=== PATIENT | male | born 1995 | race African-American/Black ===

== ENCOUNTER 2018-08-13 00:25 | Emergency (ER) | payer OTHER, SELFPAY ==
[2018-08-13] MEDS ORDERED: CODEINE 30MG/APAP 300MG TAB ONE ×2 (01:09→01:22)
[2018-08-13] MEDS ORDERED: IBUPROFEN 400 MG TAB ONE (01:09)
--- NOTE | 2018-08-13 02:05 | EDPHYS ---
Physician Documentation [facility] Name: Philippe Cooper Age: 23 yrs Sex: Male : 1995 Arrival Date: 08/13/2018 Time: 00:28 Bed 5 Private MD: ED Physician Jace Alexis HPI: 08/13 00:50 This 23 yrs old Black Male presents to ER via Ambulatory with complaints of Right Ankle pm1 Injury. 00:50 The patient presents with pain, that is acute. The complaints affect the right ankle. pm1 Onset: The symptoms/episode began/occurred just prior to arrival. Context: The problem was sustained at work, resulted from jumping down from approximately 4 foot height, The mechanism of injury is unknown. The patient can partially bear weight on the affected extremity. the patient is able to ambulate, with mild difficulty. Associated signs and symptoms: Pertinent positives: swelling, of the right ankle, Pertinent negatives: calf tenderness, numbness, tingling. Modifying factors: The symptoms are alleviated by ice packs, the symptoms are aggravated by weight bearing. Severity of symptoms: in the emergency department the symptoms are unchanged. The patient has not experienced similar symptoms in the past. The patient has not recently seen a physician. Patient was at work and jumped down from rail car. Approximately 4 foot in height. Uncertain how he injured his ankle. Historical: - Allergies: 00:31 No Known Allergies; la1 - Home Meds: 00:31 None [Active]; la1 - PMHx: 00:31 None; la1 - PSHx: 00:31 None; la1 - Immunization history:: Adult Immunizations up to date. - Social history:: Smoking status: Patient/guardian denies using tobacco. - Ebola Screening: : No symptoms or risks identified at this time. ROS: 00:50 Constitutional: Negative for fever, chills, and weight loss, Eyes: Negative for injury, pm1 pain, redness, and discharge, ENT: Negative for injury, pain, and discharge, Neck: Negative for injury, pain, and swelling, Cardiovascular: Negative for chest pain, palpitations, and edema, Respiratory: Negative for shortness of breath, cough, wheezing, and pleuritic chest pain, Abdomen/GI: Negative for abdominal pain, nausea, vomiting, diarrhea, and constipation, Back: Negative for injury and pain. 00:50 Skin: Negative for injury, rash, and discoloration, Neuro: Negative for headache, weakness, numbness, tingling, and seizure. 00:50 MS/extremity: Positive for pain, swelling, of the right ankle, Negative for paresthesias, tingling. Exam: 00:50 Constitutional: This is a well developed, well nourished patient who is awake, alert, pm1 and in no acute distress. Head/Face: Normocephalic, atraumatic. Eyes: Pupils equal round and reactive to light, extra-ocular motions intact. Lids and lashes normal. Conjunctiva and sclera are non-icteric and not injected. Cornea within normal limits. Periorbital areas with no swelling, redness, or edema. ENT: Nares patent. No nasal discharge, no septal abnormalities noted. Tympanic membranes are normal and external auditory canals are clear. Oropharynx with no redness, swelling, or masses, exudates, or evidence of obstruction, uvula midline. Mucous membranes moist. Neck: Trachea midline, no thyromegaly or masses palpated, and no cervical lymphadenopathy. Supple, full range of motion without nuchal rigidity, or vertebral point tenderness. No Meningismus. Chest/axilla: Normal chest wall appearance and motion. Nontender with no deformity. No lesions are appreciated. Cardiovascular: Regular rate and rhythm with a normal S1 and S2. No gallops, murmurs, or rubs. Normal PMI, no JVD. No pulse deficits. Respiratory: Lungs have equal breath sounds bilaterally, clear to auscultation and percussion. No rales, rhonchi or wheezes noted. No increased work of breathing, no retractions or nasal flaring. Abdomen/GI: Soft, non-tender, with normal bowel sounds. No distension or tympany. No guarding or rebound. No evidence of tenderness throughout. Back: No spinal tenderness. No costovertebral tenderness. Full range of motion. Skin: Warm, dry with normal turgor. Normal color with no rashes, no lesions, and no evidence of cellulitis. 00:50 Musculoskeletal/extremity: Extremities: grossly normal except: noted in the right ankle lateral aspect: swelling, tenderness, There is no evidence of decreased ROM, deformity. 00:50 Neuro: Orientation: is normal, Motor: is normal, moves all fours, Sensation: is normal, no obvious gross deficits. Vital Signs: 00:31 BP 152 / 83; Pulse 99; Resp 16; Temp 97.5; Pulse Ox 98% on R/A; Weight 139.71 kg; la1 Height 5 ft. 11 in. (180.34 cm); Pain 9/10; 02:27 BP 140 / 70; Pulse 90; Resp 18; Pulse Ox 100% on R/A; Pain 2/10; mg2 00:31 Body Mass Index 42.96 (139.71 kg, 180.34 cm) la1 Procedures: 02:25 Splinting: Splint applied to right ankle using Air Cast, applied by nurse. Examined by pm1 me, post splint application: neurovascular intact, 2+ distal pulses palpable, brisk capillary refill noted, Patient tolerated well. MDM: 00:41 Patient medically screened. [facility] 02:03 Data reviewed: vital signs. Data interpreted: Pulse oximetry: on room air is 98 %. pm1 Interpretation: normal. Counseling: I had a detailed discussion with the patient and/or guardian regarding: the historical points, exam findings, and any diagnostic results supporting the discharge/admit diagnosis, radiology results, the need for outpatient follow up, to return to the emergency department if symptoms worsen or persist or if there are any questions or concerns that arise at home. 08/13 00:48 Order name: Ankle Right 3 View XRAY pm1 08/13 02:06 Order name: Crutches; Complete Time: 02:26 pm1 08/13 02:06 Order name: Aircast Ankle Splint; Complete Time: 02:26 pm1 Administered Medications: 01:21 Not Given (Patient Refused): Tylenol #3 (300 mg-30 mg) 2 tabs PO once mg2 01:22 Not Given (Patient Refused): Ibuprofen 800 mg PO once mg2 Disposition: 08/13/18 02:04 Discharged to Home. Impression: Sprain of unspecified ligament of right ankle. - Condition is Stable. - Discharge Instructions: Ankle Sprain, Crutch Use. - Medication Reconciliation Form, Thank You Letter, Antibiotic Education, Prescription Opioid Use form. - Follow up: Emergency Department; When: As needed; Reason: Worsening of condition. Follow up: Private Physician; When: 2 - 3 days; Reason: Recheck today's complaints, Continuance of care, Re-evaluation by your physician. - Problem is new. - Symptoms have improved. Addendum: 08/14/2018 11:20 Co-signature as Attending Physician, Jace Alexis MD I agree with the assessment and c herrera plan of care. Signatures: Dispatcher [employer] EDJace Echeverria MD MD cha Attema, Lee, RN RN la1 Tirso Gloria, PRODUCTION TEAM LEADER PRODUCTION TEAM LEADER pm1 Pankaj Sherman RN RN mg2 Corrections: (The following items were deleted from the chart) 08/13 02:28 02:04 08/13/2018 02:04 Discharged to Home. Impression: Sprain of unspecified ligament mg2 of right ankle. Condition is Stable. Forms are Medication Reconciliation Form, Thank You Letter, Antibiotic Education, Prescription Opioid Use. Follow up: Emergency Department; When: As needed; Reason: Worsening of condition. Follow up: Private Physician; When: 2 - 3 days; Reason: Recheck today's complaints, Continuance of care, Re-evaluation by your physician. Problem is new. Symptoms have improved. pm1
--- NOTE | 2018-08-13 02:05 | ER ---
Nurse's Notes [facility] Name: Philippe Cooper Age: 23 yrs Sex: Male : 1995 Arrival Date: 08/13/2018 Time: 00:28 Bed 5 Private MD: Diagnosis: Sprain of unspecified ligament of right ankle Presentation: 08/13 00:30 Presenting complaint: Patient states: I jumped off a rail cart at work and landed wrong la1 on my right ankle. Transition of care: patient was not received from another setting of care. Onset of symptoms was August 13, 2018. Risk Assessment: Do you want to hurt yourself or someone else? Patient reports no desire to harm self or others. Initial Sepsis Screen: Does the patient meet any 2 criteria? No. Patient's initial sepsis screen is negative. Does the patient have a suspected source of infection? No. Patient's initial sepsis screen is negative. Care prior to arrival: None. 00:30 Method Of Arrival: Ambulatory la1 00:30 Acuity: JULIEN 4 la1 Triage Assessment: 02:27 General: Appears in no apparent distress. comfortable, Behavior is calm, cooperative. mg2 Historical: - Allergies: 00:31 No Known Allergies; la1 - Home Meds: 00:31 None [Active]; la1 - PMHx: 00:31 None; la1 - PSHx: 00:31 None; la1 - Immunization history:: Adult Immunizations up to date. - Social history:: Smoking status: Patient/guardian denies using tobacco. - Ebola Screening: : No symptoms or risks identified at this time. Screenin:50 Abuse screen: Denies threats or abuse. Denies injuries from another. Nutritional mg2 screening: No deficits noted. Tuberculosis screening: No symptoms or risk factors identified. Fall Risk Fall in past 12 months (25 points). Ambulatory Aid- None/Bed Rest/Nurse Assist (0 pts). Gait- Weak (10 pts.). Assessment: 00:51 Pain: Complains of pain in right foot Pain currently is 6 out of 10 on a pain scale. mg2 Quality of pain is described as burning, Pain began suddenly. Neuro: Level of Consciousness is awake, alert, obeys commands, Oriented to person, place, time, situation. Cardiovascular: Capillary refill < 3 seconds. Respiratory: Airway is patent Respiratory effort is even, unlabored, Respiratory pattern is regular, symmetrical. Musculoskeletal: Circulation, motion, and sensation intact. Capillary refill < 3 seconds, Range of motion: limited in right ankle. Vital Signs: 00:31 BP 152 / 83; Pulse 99; Resp 16; Temp 97.5; Pulse Ox 98% on R/A; Weight 139.71 kg; la1 Height 5 ft. 11 in. (180.34 cm); Pain 9/10; 02:27 BP 140 / 70; Pulse 90; Resp 18; Pulse Ox 100% on R/A; Pain 2/10; mg2 00:31 Body Mass Index 42.96 (139.71 kg, 180.34 cm) la1 ED Course: 00:28 Patient arrived in ED. am2 00:31 Triage completed. la1 00:32 Arm band placed on left wrist. la1 00:34 Tirso Gloria NP is PHCP. pm1 00:34 Jace Alexis MD is Attending Physician. pm1 00:45 Pankaj Sherman RN is Primary Nurse. mg2 01:07 No provider procedures requiring assistance completed. Patient did not have IV access mg2 during this emergency room visit. 01:09 X-ray completed. Portable x-ray completed in exam room. Patient tolerated procedure kw well. 01:10 Ankle Right 3 View XRAY In Process Unspecified. EDMS 02:26 Patient has correct armband on for positive identification. mg2 02:26 Crutch training done. aircast applied to the right ankle. mg2 Administered Medications: 01:21 Not Given (Patient Refused): Tylenol #3 (300 mg-30 mg) 2 tabs PO once mg2 01:22 Not Given (Patient Refused): Ibuprofen 800 mg PO once mg2 Outcome: 02:04 Discharge ordered by . pm1 02:28 Discharged to home ambulatory, with crutches, with friend. mg2 02:28 Condition: stable 02:28 Discharge instructions given to patient, friend, Instructed on discharge instructions, follow up and referral plans. crutch walking, Demonstrated understanding of instructions, follow-up care, crutch walking. 02:28 Patient left the ED. mg2 Signatures: Dispatcher [employer] EDMS Manjula Graham Lee, RN RN la1 Tirso Gloria NP ECONOMICS LECTURER pm1 Lisa Paul am2 Pankaj Sherman, RN RN mg2 Corrections: (The following items were deleted from the chart) 01:21 01:04 Ibuprofen 800 mg PO mg2 mg2 01:21 01:04 Tylenol #3 (300 mg-30 mg) 2 tabs PO mg2 mg2
--- NOTE | 2018-08-13 08:18 | RAD REPORT ---
EXAM DESCRIPTION: RAD - Ankle Right 3 View - 08/13/2018 1:12 am CLINICAL HISTORY: Pain;Swelling Twisting injury to right ankle COMPARISON: No comparisons FINDINGS: Soft tissue swelling is seen about the right ankle. No fracture or dislocation seen. Tiny calcaneal spurs.
== END 2018-08-13 02:28 | disposition home or self-care (01) ==
LOC: ER 00:25
DX: S93.401A Sprain of unspecified ligament of right ankle, initial encounter (principal); X58.XXXA Exposure to other specified factors, initial encounter; Y93.89 Activity, other specified; Y92.89 Other specified places as the place of occurrence of the external cause; Y99.8 Other external cause status